=== PATIENT | male | born 1960 | race Caucasian/White ===

== ENCOUNTER 2019-12-27 14:18 | Emergency (ER) | payer MEDICARE ==
[~2019-12-27] VITALS: Ht 182.9 cm; Wt 110.0 kg
[2019-12-27 15:06] LABS: GFR > 60 ML/MIN (>=60 (CALC)); GFR FOR AFR.AMER. > 60 ML/MIN (>=60 (CALC))
[2019-12-27 15:07] LABS: HEMATOCRIT 26.1 % (39.0-50.0); HEMOGLOBIN 8.2 g/dl (14.0-18.0); IMMATURE GRANULOCYTES 0.7 % (0.0-5.0); MEAN CELL VOLUME 98.9 fL CALC (80.0-100.0); MEAN CORPUSCULAR HGB 31.1 pG CALC (26.0-32.0); MEAN CORPUSCULAR HGB CONC 31.4 g/dL CAL (32.0-36.0); NEUT# 6.85 thou/uL (1.82-7.42); RED BLOOD COUNT 2.64 mill/uL (4.70-6.10); RED CELL DISTRI WIDTH 15.1 % (11.5-15.5)
[2019-12-27 15:14] LABS: ALBUMIN 4.2 g/dL (3.2-5.0); ALKALINE PHOSPHATASE 73 u/l (38-126); ANION GAP 16 (6-22 (CALC)); BILIRUBIN, TOTAL 1.5 mg/dL (0.0-1.4); BUN 33 mg/dL (9-20); BUN/CREATININE RATIO 47 (12-20 (CALC)); CARBON DIOXIDE 20 mmol/l (22-30); CHLORIDE 104 mmol/l (95-108); CREATININE 0.7 mg/dL (0.7-1.3); GFR > 60 ML/MIN (>=60 (CALC)); GFR FOR AFR.AMER. > 60 ML/MIN (>=60 (CALC)); POTASSIUM 4.2 mmol/l (3.5-5.1); SGOT/AST 51 u/l (17-59); SODIUM 136 mmol/l (137-146); TOTAL PROTEIN 7.4 g/dL (6.3-8.2)
[2019-12-27 17:20] VITALS: BP 125/84
--- NOTE | 2019-12-29 08:29 | NUR ---
PRELIM BLOOD CX RESULTS SHOW GRAM POSITIVE COCCI IN 1 AEROBIC BOTTLE PER [place] IN LAB. PT WAS XFER TO [facility]. RESULTS CALLED TO NURSE SMITH ON 5EMERE AND FAXED TO [phone]. WILL F/U WITH FINAL RESULTS
--- NOTE | 2019-12-31 14:01 | NUR ---
Final blood culture results of 1/4 bottles growing Staph epi called and faxed to nurse Virginia at [facility] on 12/30/19 @1400.
== END 2019-12-27 17:20 | disposition short-term general hospital (02) ==
LOC: ED 14:18
PROVIDERS: Family Medicine
DX: K92.0 Hematemesis (principal); K92.1 Melena; D64.9 Anemia, unspecified; E86.0 Dehydration; F10.20 Alcohol dependence, uncomplicated; E87.2 Acidosis
CPT/HCPCS: J2354; Q9967; S0164

== ENCOUNTER 2020-12-07 14:17 | Emergency (ER) | payer MEDICARE ==
[~2020-12-07] VITALS: Ht 182.9 cm; Wt 81.0 kg
[2020-12-07 15:02] LABS: HEMATOCRIT 31.2 % (39.0-50.0); HEMOGLOBIN 9.9 g/dl (14.0-18.0); IMMATURE GRANULOCYTES 0.1 % (0.0-5.0); MEAN CORPUSCULAR HGB 33.6 pG CALC (26.0-32.0); MEAN CORPUSCULAR HGB CONC 31.7 g/dL CAL (32.0-36.0); NEUT# 7.08 thou/uL (1.82-7.42); RED BLOOD COUNT 2.95 mill/uL (4.70-6.10)
[2020-12-07 15:03] LABS: MEAN CELL VOLUME 105.8 fL CALC (80.0-100.0)
[2020-12-07 15:25] LABS: INTERNATIONAL NORMALIZED RATIO 1.3 RATIO (0.7-1.3); PROTHROMBIN TIME 13.5 SECONDS (9.0-12.5)
[2020-12-07 16:19] LABS: ALKALINE PHOSPHATASE 157 u/l (38-126); BUN 15 mg/dL (9-20); BUN/CREATININE RATIO 24 (12-20 (CALC)); CHLORIDE 105 mmol/l (95-108); CREATININE 0.6 mg/dL (0.7-1.3); GFR > 60 ML/MIN (>=60 (CALC)); GFR FOR AFR.AMER. > 60 ML/MIN (>=60 (CALC)); MAGNESIUM 1.2 mg/dL (1.6-2.3); SODIUM 138 mmol/l (137-146)
[2020-12-07 16:27] LABS: ANION GAP 17 (6-22 (CALC)); BILIRUBIN, TOTAL 7.3 mg/dL (0.0-1.4); CARBON DIOXIDE 22 mmol/l (22-30); POTASSIUM 5.6 mmol/l (3.5-5.1); SGOT/AST 168 u/l (17-59); TOTAL PROTEIN 6.5 g/dL (6.3-8.2)
[2020-12-07 17:25] VITALS: BP 91/78
[2020-12-07 18:13] VITALS: BP 92/71
[2020-12-07 19:07] VITALS: BP 108/69
== END 2020-12-07 20:00 | disposition short-term general hospital (02) ==
LOC: ED 14:17
PROVIDERS: Physician Assistant Surgical
PROC: 30233N1 Transfusion of Nonautologous Red Blood Cells into Peripheral Vein, Percutaneous Approach (ICD-10-PCS; principal; 2020-12-07)
DX: K92.0 Hematemesis (principal); K92.1 Melena; D64.9 Anemia, unspecified; E83.42 Hypomagnesemia; F10.20 Alcohol dependence, uncomplicated; F17.200 Nicotine dependence, unspecified, uncomplicated; Z20.822 Contact with and (suspected) exposure to COVID-19
CPT/HCPCS: J2354; J3475; P9016; Q9967; S0164

== ENCOUNTER 2021-01-30 16:59 | Inpatient (IN) | payer MEDICARE ==
[~2021-01-30] VITALS: Ht 182.9 cm; Wt 72.0 kg
--- NOTE | 2021-01-30 17:00 | NUR ---
PATIENT TO ROOM 15 VIA EMS
--- NOTE | 2021-01-30 17:59 | NUR ---
Reassessment of patient completed. No distress noted. Extra warm blankets given as per patient request.
[2021-01-30 18:33] LABS: URINE BILIRUBIN - DIPSTICK NEGATIVE (NEGATIVE); URINE BLOOD DIPSTICK NEGATIVE (NEGATIVE); URINE COLOR YELLOW; URINE GLUCOSE - DIPSTICK NEGATIVE (NEGATIVE); URINE KETONE NEGATIVE (NEGATIVE); URINE LEUK ESTERASE NEGATIVE (NEGATIVE); URINE NITRITE - DIPSTICK NEGATIVE (Negative); URINE PH 6.5 (4.5-8.0); URINE PROTEIN - DIPSTICK NEGATIVE (NEG-TRACE); URINE SPECIFIC GRAVITY <=1.005
[2021-01-30 18:33] LABS: HEMATOCRIT 35.1 % (39.0-50.0); HEMOGLOBIN 12.4 g/dl (14.0-18.0); IMMATURE GRANULOCYTES 0.6 % (0.0-5.0); MEAN CELL VOLUME 88.9 fL CALC (80.0-100.0); MEAN CORPUSCULAR HGB 31.4 pG CALC (26.0-32.0); MEAN CORPUSCULAR HGB CONC 35.3 g/dL CAL (32.0-36.0); NEUT# 7.43 thou/uL (1.82-7.42); RED BLOOD COUNT 3.95 mill/uL (4.70-6.10); RED CELL DISTRI WIDTH 15.5 % (11.5-15.5)
[2021-01-30 18:45] LABS: ALBUMIN 3.5 g/dL (3.2-5.0); BILIRUBIN, TOTAL 9.4 mg/dL (0.0-1.4); BUN 10 mg/dL (9-20); BUN/CREATININE RATIO 11 (12-20 (CALC)); GFR > 60 ML/MIN (>=60 (CALC)); GFR FOR AFR.AMER. > 60 ML/MIN (>=60 (CALC)); SGOT/AST 113 u/l (17-59); TOTAL PROTEIN 7.7 g/dL (6.3-8.2)
[2021-01-30 18:49] LABS: ALKALINE PHOSPHATASE 262 u/l (38-126); ANION GAP 14 (6-22 (CALC)); CARBON DIOXIDE 39 mmol/l (22-30); CHLORIDE 68 mmol/l (95-108); SODIUM 118 mmol/l (137-146)
--- NOTE | 2021-01-30 19:00 | NUR ---
transition of care report to favian luther
[2021-01-30 19:31] LABS: INTERNATIONAL NORMALIZED RATIO 1.2 RATIO (0.7-1.3); PROTHROMBIN TIME 12.6 SECONDS (9.0-12.5)
--- NOTE | 2021-01-30 19:45 | NUR ---
PT RESTING WITH EYES CLOSED, CALM AND COOPERATIVE OFFERS NO COMPLAINTS EXCEPT BEING COLD, BLANKET PROVIDED.
--- NOTE | 2021-01-30 20:36 | NUR ---
PT RESTING OFFERS NO NEW COMPLAINTS, SKIN INTACT WITH MUTIPKE OLD BRUISES AND ABRASIONS, CALL SINGH WITHIN REACH, WILL CONTINUE TO MONITOR
--- NOTE | 2021-01-30 21:12 | NUR ---
PT RESTING NO COMPLAINTS VOICED, CALL SINGH WITHIN REACH.
--- NOTE | 2021-01-30 22:00 | NUR ---
PT AWARE OF PLANNED ADMISSION, CALL SINGH WITHIN REACH.
[2021-01-30 22:14] LABS: BUN 10 mg/dL (9-20); BUN/CREATININE RATIO 12 (12-20 (CALC)); CARBON DIOXIDE 35 mmol/l (22-30); CHLORIDE 72 mmol/l (95-108); CREATININE 0.8 mg/dL (0.7-1.3); GFR > 60 ML/MIN (>=60 (CALC)); GFR FOR AFR.AMER. > 60 ML/MIN (>=60 (CALC))
[2021-01-30 22:17] LABS: ANION GAP 12 (6-22 (CALC)); POTASSIUM 2.4 mmol/l (3.5-5.1); SODIUM 117 mmol/l (137-146)
[2021-01-30 22:22] LABS: TSH, 3RD GENERATION 1.09 uIU/mL (0.47 - 4.68)
--- NOTE | 2021-01-30 22:48 | NUR ---
REPORT CALLED TO TREVOR BARTHOLOMEW IN ICU BED 4 ASSIGNED
--- NOTE | 2021-01-30 23:15 | NUR ---
PT TRANSPORTED TO ICU VIA STRETCHER WITH TELE IN PLACE.
--- NOTE | 2021-01-30 23:15 | NUR ---
RECEIVED INTO ICU BED 4 FROM ER VIA STRETCHER. PATIENT ASSISTED INTO BED AND PLACED ON BRASS BOBBIN WINDER SHOWING SR. ON O2 AT 2 L NC. O2 SAT 96% RESP NON-LABORED. LUNGS CLEAR. 3% SODIUM CHLORIDE INFUSING AT 40 ML/HR INTO LAC IV SITE. SALINE LOCK IN PLACE IN LFA, NS STARTED ORDERED AT 100 ML/HR. BOTH IV SITES BENIGN. DISCUSSED PLAN OF CARE. DENIES NEEDS AT THIS TIME. PATIENT BELONGING INVENTORY SHEET COMPLETED. PATIENT HAS A WALLET WITH HIM AND STATES HE HAS "A FEW HUNDRED BUCKS." OFFERED TO HAVE WALLET PLACED IN HOSPITAL SAFE AND PATIENT DECLINED. CALL SINGH IN REACH.
[2021-01-30 23:30] VITALS: BP 83/56
[2021-01-30 23:45] VITALS: BP 76/47
[2021-01-31] VITALS (37 sets, daily range): BP systolic 59–100; BP diastolic 38–70
--- NOTE | 2021-01-31 | NUR ---
PATIENT VOIDED IN URINAL DARK OSVALDO URINE. RESTING WITH EYES CLSOED AT THIS TIME.
--- NOTE | 2021-01-31 00:36 | NUR ---
ANIMAL CHIROPRACTOR HERE TO DRAW BLOOD FOR STAT CH7.
[2021-01-31 00:55] LABS: BUN 10 mg/dL (9-20); BUN/CREATININE RATIO 12 (12-20 (CALC)); CARBON DIOXIDE 35 mmol/l (22-30); CHLORIDE 74 mmol/l (95-108); CREATININE 0.8 mg/dL (0.7-1.3); GFR > 60 ML/MIN (>=60 (CALC)); GFR FOR AFR.AMER. > 60 ML/MIN (>=60 (CALC))
[2021-01-31 00:59] LABS: ANION GAP 9 (6-22 (CALC)); POTASSIUM 2.4 mmol/l (3.5-5.1); SODIUM 116 mmol/l (137-146)
--- NOTE | 2021-01-31 01:00 | NUR ---
NA 116. 3% SODIUM CHLORIDE CONTINUES TO INFUSE AT 40 ML/HR.
[2021-01-31 02:55] LABS: ANION GAP 9 (6-22 (CALC)); BUN 10 mg/dL (9-20); BUN/CREATININE RATIO 13 (12-20 (CALC)); CARBON DIOXIDE 35 mmol/l (22-30); CHLORIDE 79 mmol/l (95-108); CREATININE 0.8 mg/dL (0.7-1.3); GFR > 60 ML/MIN (>=60 (CALC)); GFR FOR AFR.AMER. > 60 ML/MIN (>=60 (CALC)); POTASSIUM 2.8 mmol/l (3.5-5.1); SODIUM 120 mmol/l (137-146)
--- NOTE | 2021-01-31 03:10 | NUR ---
SODIUM LEVEL UP TO 120. 3% SODIUM CHLORIDE ON HOLD. CALL TO DR GARNER AND INFORMED HIM OF SODIUM LEVEL. NEW ORDERS RECEIVED. IV SITES IN LFA AND LAC FLUSHED AND PATENT.
--- NOTE | 2021-01-31 04:00 | NUR ---
RESTING WITH EYES CLOSED. RESP NON-LABORED. SB TO SR ON MONITOR.
[2021-01-31 04:45] LABS: HEMATOCRIT 30.7 % (39.0-50.0); HEMOGLOBIN 10.7 g/dl (14.0-18.0); MEAN CELL VOLUME 88.2 fL CALC (80.0-100.0); MEAN CORPUSCULAR HGB 30.7 pG CALC (26.0-32.0); MEAN CORPUSCULAR HGB CONC 34.9 g/dL CAL (32.0-36.0); RED BLOOD COUNT 3.48 mill/uL (4.70-6.10); RED CELL DISTRI WIDTH 15.8 % (11.5-15.5)
[2021-01-31 05:09] LABS: ANION GAP 9 (6-22 (CALC)); BUN 9 mg/dL (9-20); BUN/CREATININE RATIO 13 (12-20 (CALC)); CARBON DIOXIDE 34 mmol/l (22-30); CHLORIDE 82 mmol/l (95-108); CREATININE 0.7 mg/dL (0.7-1.3); GFR > 60 ML/MIN (>=60 (CALC)); GFR FOR AFR.AMER. > 60 ML/MIN (>=60 (CALC)); POTASSIUM 2.7 mmol/l (3.5-5.1); SODIUM 122 mmol/l (137-146)
[2021-01-31 05:10] LABS: MAGNESIUM 1.6 mg/dL (1.6-2.3)
--- NOTE | 2021-01-31 06:00 | NUR ---
SLEPT ON AND OFF. SALINE LOCK INTACT IN LAC AND LFA. SB-SR ON MONITOR. NO C/O VOICED.
[2021-01-31 07:00] LABS: ANION GAP 9 (6-22 (CALC)); BUN 9 mg/dL (9-20); BUN/CREATININE RATIO 13 (12-20 (CALC)); CARBON DIOXIDE 35 mmol/l (22-30); CHLORIDE 82 mmol/l (95-108); CREATININE 0.7 mg/dL (0.7-1.3); GFR > 60 ML/MIN (>=60 (CALC)); GFR FOR AFR.AMER. > 60 ML/MIN (>=60 (CALC)); POTASSIUM 2.6 mmol/l (3.5-5.1); SODIUM 124 mmol/l (137-146)
--- NOTE | 2021-01-31 07:00 | NUR ---
REPORT RECEIVED FROM PUMA MURRAY. PT AWAKE ALERT AND APPROPRIATE. ASSESSMENT PREFORMED. PT REPORTS NO PAIN, EAGER FOR BREAKFAST. STATES "I THINK THEYRE THINKING ABOUT LETTING ME GO HOME." POC REVIEWED, PT STATES "WELL I GUESS ANOTHER NIGHT OF YOU GUYS TAKING CARE OF ME WILL BE OK." CALL LIGHT WITHIN REACH. INSTRUCTED PT TO CALL FOR ASSISTANCE, VERBALIZES UNDERSTANDING.
--- NOTE | 2021-01-31 07:52 | NUR ---
LAB IN ROOM AT THIS TIME FOR SCHEDULED CHEMISTRY. PT APPEARS TO BE IN NO DISTRESS.
[2021-01-31 08:44] LABS: ANION GAP 8 (6-22 (CALC)); BUN 9 mg/dL (9-20); BUN/CREATININE RATIO 13 (12-20 (CALC)); CARBON DIOXIDE 37 mmol/l (22-30); CHLORIDE 82 mmol/l (95-108); CREATININE 0.7 mg/dL (0.7-1.3); GFR > 60 ML/MIN (>=60 (CALC)); GFR FOR AFR.AMER. > 60 ML/MIN (>=60 (CALC)); SODIUM 124 mmol/l (137-146)
--- NOTE | 2021-01-31 10:00 | NUR ---
NEXT OF KIN ON PHONE, INFORMED OF CT FOR SCHEDULED FOR OUTPATIENT AT [facility] NOTIFIED. STATES WILL ATTEMPT TO ARRANGE PROCEDURE WITH CT DEPARTMENT FOR PATIENT. ALSO, PT STATES HE TAKES REGULAR MEDICATIONS, AND GETS PRESCRIPTIONS FROM AMA. STATES WILL OBTAIN LIST FROM AMA IN AM. PT DENIES PAIN, SOB OR DISCOMFORT CALL LIGHT WITHIN REACH. INSTRUCTED PT TO CALL FOR ASSISTANCE, VERBALIZES UNDERSTANDING.
[2021-01-31 10:22] LABS: ALBUMIN 2.9 g/dL (3.2-5.0); BILIRUBIN, TOTAL 7.9 mg/dL (0.0-1.4); DIRECT BILIRUBIN 2.9 mg/dl (0.0-0.3); TOTAL PROTEIN 6.7 g/dL (6.3-8.2)
--- NOTE | 2021-01-31 12:00 | NUR ---
PT GIVEN BED BATH AT THIS TIME RELATED TO SPILLED URINE ON SHEETS. ADMITS TO NOT BEING ABLE TO BATH SELF FOR SOME DAYS. STATES "ARE THERE PEOPLE WHO CAN COME TO YOUR HOUSE AND HELP YOU WITH THINGS LIKE THIS?" EDUCATED PATIENT ON CASE MANAGEMENT AND THE ORDER FOR PHYSICAL THERAPY IN AM. PT STATES UNDERSTANDING, AND ADMITS TO NEEDING ADDITIONAL ASSISTANCE WITH MEDICATIONS AND ADL'S. CASE MANAGEMENT AND PT REFERRAL ORDERED PREVIOUSLY.
--- NOTE | 2021-01-31 14:16 | NUR ---
NOTIFIED OF PT'S PERSISTANT HYPOTENSION. GIVEN ORDER FOR 1L OF LR. WILL MONITOR Q15 MINUTE BP. WILL NOTIFY IF BP WORSENS.
--- NOTE | 2021-01-31 15:15 | NUR ---
PT GIVEN CHLORASEPTIC THROAT SPRAY FOR DISCOMFORT IN MOUTH AND ON TONGUE. ALSO GIVEN TYLENOL FOR GENERALIZED ACHE IN BODY.
--- NOTE | 2021-01-31 15:23 | NUR ---
LR FLUID BOLUS FINISHED AT THIS TIME BP IS 77/56. PT PLACED BACK ON O2 SPO2 REMAINS IN THE HIGH 80'S FOR O2 SATURATION. WILL REPEAT BP IN 15 MINUTES AND NOTIFY MD IF NO CHANGE IN HYPOTENSION.
--- NOTE | 2021-01-31 17:00 | NUR ---
MOTHER ON PHONE AT THIS TIME. GIVEN UPDATE, PT REFUSING TO TALK TO MOTHER AT THIS TIME. VS SHOW SMALL IMPROVEMENT. PT DENIES S/S OF HYPOTENSION. STATES UNDERSTANDING OF CALL LIGHT, AND NOT GETTING OOB WITHOUT ASSISTANCE. WILL CONTINUE TO MONITOR.
--- NOTE | 2021-01-31 19:56 | NUR ---
patient is alert and oriented x4. o2 sats 92% and greater on ra, patient had nasal cannula off of nose. patient does cooperate but does not want to be bothered with, states, "your just gonna take my do what you have to do and your done with me for tonight," after I discussed poc, such as, my nurse assessment. nurse assessment performed. has 2 iv sites, intact, functioining properly, multivitamin bag infusing properly. has a lesion on his frontal head, is cdi/scabbed. has scattered bruising on ue and scabs. reports its from when his dog "pushes" him. wears his glasses and his hat. no edema noted. requests apple juice and iced water, provided. warm blanket provided. when uss urinal he places his feet out of the bed and lays back. room in front of nurse's station and can observe him. denies pain. call light within reach.
--- NOTE | 2021-01-31 20:30 | NUR ---
LOVENOX INJECTION PROVIDED, PT TOLERATED WELL. NO ACUTE DISTRESS SHOWN. CALL LIGHT WITHIN REACH. BP CONTINUES TO BE LOW 81/56 MMHG, WILL CONTINUE TO MONITOR.
--- NOTE | 2021-01-31 22:47 | NUR ---
JARRED AND SPOKE TO DR GARNER REGARDING PATIENT BP AND MAP. PT IS ASYMPTOMATIC, BANANA BAG HAS FINISHED INFUSING. NEW ORDER RECEIVED AND FAXED TO [facility].
--- NOTE | 2021-01-31 23:21 | NUR ---
TYLENOL PROVIDED PER PT REQUEST. IV FLUID BOLUS INFUSING NOW. PATIENT IN NO ACUTE DISTRESS. IS THIRSTY AND DRINKING APPLE JUICE AND WATER THROUGH THE NIGHT. CALL ELIZABETH ACEVEDO.
[2021-02-01] VITALS (23 sets, daily range): BP systolic 73–111; BP diastolic 48–79
--- NOTE | 2021-02-01 00:23 | NUR ---
IV FLUID BOLUS HAS FINSIHED INFUSING, LAC IV IS PATENT. PATIENT IS AWAKE, NO COMPLAINTS OR NEEDS AT THISTIME. CALL LIGHT WITHIN REACH.
--- NOTE | 2021-02-01 03:40 | NUR ---
patient's bp reads low, patient was laying on his r-side, was intstructed to lay on his back to be able to take bp again for a better reading, bed was also placed in trendelenburg position. bp now 83/61 mmhg.
[2021-02-01 05:07] LABS: HEMOGLOBIN 10.7 g/dl (14.0-18.0); IMMATURE GRANULOCYTES 1.1 % (0.0-5.0); MEAN CELL VOLUME 92.8 fL CALC (80.0-100.0); MEAN CORPUSCULAR HGB CONC 33.4 g/dL CAL (32.0-36.0); NEUT# 3.09 thou/uL (1.82-7.42); RED BLOOD COUNT 3.45 mill/uL (4.70-6.10); RED CELL DISTRI WIDTH 16.5 % (11.5-15.5)
--- NOTE | 2021-02-01 05:20 | NUR ---
PATIENT IS AWAKE, SITS IN SEMI BENNETT'S POSITION. REQUESTS ORANGE JUICE AND A SNACK BAR. NO ACUTE DISTRESS SHOWN, NO COMPLAINTS. CALL LIGHT WITHIN EACH.
[2021-02-01 05:59] LABS: ALBUMIN 2.6 g/dL (3.2-5.0); ALKALINE PHOSPHATASE 208 u/l (38-126); ANION GAP 7 (6-22 (CALC)); BUN 5 mg/dL (9-20); BUN/CREATININE RATIO 9 (12-20 (CALC)); CARBON DIOXIDE 32 mmol/l (22-30); CREATININE 0.6 mg/dL (0.7-1.3); GFR > 60 ML/MIN (>=60 (CALC)); GFR FOR AFR.AMER. > 60 ML/MIN (>=60 (CALC)); POTASSIUM 2.9 mmol/l (3.5-5.1); SGOT/AST 108 u/l (17-59); SODIUM 129 mmol/l (137-146); TOTAL PROTEIN 5.9 g/dL (6.3-8.2)
[2021-02-01 06:08] LABS: CHLORIDE 93 mmol/l (95-108)
--- NOTE | 2021-02-01 07:09 | NUR ---
ASSUMED CARE OF PT, UPON ENTERING ROOM TO VERIFY BP OF 61/37, PT STATES HE DOES NOT WANT TO BE BOTHERED AND " I WANT ALL THIS CRAP OFF OF ME TODAY" RECHECK OF BP WAS 80/49, WHICH APPEARS TO BE PT BASELINE. ASSURED PT WE WILL DISCUSS HIS CARE WITH MD DURING ROUNDS.
--- NOTE | 2021-02-01 08:18 | NUR ---
PT SITTING UP EATING BREAKFAST, STATED AGAIN HOW HE WANTS TO GO HOME, EXPLAINED HIS LAB RESULTS AND ELECTOLYTE IMBALANCE. PT STATES "JUST GIVE ME SOME VITAMINS" TOLD HIM WE WOULD DISCUSS HIS CARE GOAL WITH MD DURING ROUNDS
--- NOTE | 2021-02-01 09:37 | NUR ---
pt states he doesnt get out of bed, can only sit on the side in emergencies. asked how he takes care of his dog at home, he states he gave him away. asked how he goes to bathroom, pt states "i use a pool cue to get around" he then stated to tell pt they are wasting their time. told him he would be unable to go home unless we know he can take care of himself.
--- NOTE | 2021-02-01 11:08 | NUR ---
UPDATED PT MOM VIA PHONE
[2021-02-01] MEDS ORDERED: B-12500 MC1 PO (11:59)
[2021-02-01] MEDS ORDERED: FLEXERIL5 M1 PO (12:02)
[2021-02-01] MEDS ORDERED: PROTONIX40 M2 PO (12:02)
[2021-02-01] MEDS ORDERED: GABAPENTIN300 M2 PO (12:04)
[2021-02-01] MEDS ORDERED: PROPRANOLOL HCL20 MG PO (12:05)
[2021-02-01] MEDS ORDERED: ONDANSETRON4 MG PO (12:06)
[2021-02-01] MEDS ORDERED: Levaquin PO (12:08)
[2021-02-01] MEDS ORDERED: VALIUM2 MG PO (12:09)
--- NOTE | 2021-02-01 14:20 | NUR ---
CHANGED PT LINEN, PT REFUSED BATH
--- NOTE | 2021-02-01 16:46 | NUR ---
UPDATED PT SISTER VIA PHONE
--- NOTE | 2021-02-01 18:00 | NUR ---
PT SEEMS RESTLESS, RE ENFORCED HE NEEDED TO KEEP MONTIOR ON IN ICU, REORIENTED ON HOW TO USE CALL LIGHT AND WHERE URINAL WAS
--- NOTE | 2021-02-01 19:50 | NUR ---
awakens easily. no acute distress. hall monitor shows sinus rhythm hr 80. #20 lac ns infusing @ 80cchr. po fluids taken poor. voids per urinal. urine dark bradly. no dt's. fall precautions cont.
--- NOTE | 2021-02-01 20:20 | NUR ---
amb to br per request for bm then back to bed. alma well.
--- NOTE | 2021-02-01 21:30 | NUR ---
pt requested bp cuff & site monitor off. request denied.
--- NOTE | 2021-02-01 21:39 | NUR ---
lab here. blood drawn.
[2021-02-01 22:03] LABS: ANION GAP 7 (6-22 (CALC)); BUN 3 mg/dL (9-20); BUN/CREATININE RATIO 5 (12-20 (CALC)); CARBON DIOXIDE 30 mmol/l (22-30); CHLORIDE 97 mmol/l (95-108); CREATININE 0.6 mg/dL (0.7-1.3); GFR > 60 ML/MIN (>=60 (CALC)); GFR FOR AFR.AMER. > 60 ML/MIN (>=60 (CALC)); SODIUM 130 mmol/l (137-146)
[2021-02-01 22:05] LABS: POTASSIUM 3.9 mmol/l (3.5-5.1)
--- NOTE | 2021-02-01 23:55 | NUR ---
pt removed bp cuff & cardiac cath technician.
[2021-02-02] VITALS (7 sets, daily range): BP systolic 98–113; BP diastolic 59–71
--- NOTE | 2021-02-02 02:00 | NUR ---
eyes closed. no distress. ivf infusing well.
--- NOTE | 2021-02-02 05:00 | NUR ---
lab here. blood drawn. rn cvicu & bp cuff replaced.
--- NOTE | 2021-02-02 07:09 | NUR ---
ASSUMED CARE OF PT FROM ELI GARCIA. PT HAS NO S/S OF DISTRESS. DISCUSSED PT PLAN OF CARE AND GOALS FOR TODAY. EXPLAINED TO PT IMPORTANCE OF WORKING WITH PHYSICAL THREAPY AND GETTING OUT OF BED. PT STATED HE CANT. EXPLAINED THAT HE GOT UP AND AMBULATED TO BATHROOM TWICE LAST NIGHT SO HE IS ABLE TO GET OUT OF BED AND WOTK WITH THREAPY TODAY. DISCUSSED CARE GOALS WITH HIM AND EXPLAINED IF HE IS UNABLE TO GET OOB TO CARE FOR HIMSELF WE WOULD BE UNABLE TO SEND HIM HOME AND IF INDICATED WOULD HE BE WILLING TO GO TO REHAB FOR P.T. AND HE STATED THAT HE WOULD BE INTERESTED IN DOING THAT IF PRESCRIBED.
--- NOTE | 2021-02-02 07:57 | NUR ---
PT SITING UP IN BED EATING BREAKFAST. PT REFUSED TO GET OOB TO CHAIR TO EAT.
--- NOTE | 2021-02-02 08:25 | NUR ---
ROUNDING AT BEDSIDE
--- NOTE | 2021-02-02 09:14 | NUR ---
OBSERVED PT TELE MONITOR WAS DISCONNECTED. WENT INTO ROOM TO RECONNECT AND EDUCATE PT ON IMPORTANCE OF LEAVING MONITOR ON, FOUND PT HAD WALKED HIMSELF TO THE BATHROOM. RE ENFORCED USE OF CALL LIGHT AND CALLING FOR ASSISTANCE WHEN GETTING OUT OF BED. PT ABLE TO WALK BACK TO BED WITH STAND BY ASSISTANCE. REPLACED MONITOR AND TURNED ON BED ALARM.
--- NOTE | 2021-02-02 11:01 | NUR ---
ASSISTED PT TO BATHROOM WITH STAND BY ASSISTANCE
[2021-02-02 11:41] LABS: ANION GAP 8 (6-22 (CALC)); BUN 4 mg/dL (9-20); BUN/CREATININE RATIO 6 (12-20 (CALC)); CARBON DIOXIDE 29 mmol/l (22-30); CHLORIDE 98 mmol/l (95-108); CREATININE 0.6 mg/dL (0.7-1.3); GFR > 60 ML/MIN (>=60 (CALC)); GFR FOR AFR.AMER. > 60 ML/MIN (>=60 (CALC)); SODIUM 131 mmol/l (137-146)
--- NOTE | 2021-02-02 13:04 | NUR ---
UPDATED PT MOTHER VIA TELEPHONE
--- NOTE | 2021-02-02 13:20 | NUR ---
UPDATED PT SISTER VIA TELEPHONE
--- NOTE | 2021-02-02 14:15 | NUR ---
ASSISTED PT TO BATHROOM WITH STANDBY ASSISTANCE
--- NOTE | 2021-02-02 15:59 | NUR ---
ASSISTED PT TO BATHROOM VIA STANDBY ASSISTANCE
--- NOTE | 2021-02-02 16:06 | NUR ---
PHYSICAL THERAPY AT BEDSIDE EVALUATING PT
--- NOTE | 2021-02-02 16:42 | NUR ---
S: Patient states that he is feeling a little better with improved dynamic balance and walking 5 to 8 steps to and from the bed to the bathroom. O: Patient did the following: Seated knee extension for 10 reps x 2 sets. Seated hip flexion for 10 reps x 2 sets. Seated hip abduction for 10 reps x 2 sets. Sit to stand activity for 10 reps. Dynamic standing balance, weight shifting for 10 reps, side to side with min A x 1. A: Patient exhibiting improving dynamic balance capability, tolerated 10-15 seconds of dynamic balance with weight shifting activity, but fatigued immediately and requested to sit down. Patient was reminded about proper body mechanics to help decrease trick movements and fall risks, especiallt sit to stand transfers. P: Patient was reminded to continue with strengthening exercises, dynamic balance activity, and practice of proper body mechanics to help decrease trick movements, improve functional weight bearing capability and tolerance, while decreasing fall risks. Am Pac score today was 10 points, discharge recommendation would be extended care facility and I agree with this recommendation to help patient prepare for discharge and to return back home.
--- NOTE | 2021-02-02 17:02 | NUR ---
REPORT RECIEVED FROM MAYNOR BARTHOLOMEW. PT CAME VIA WC FROM ICU BY MAYNOR BARTHOLOMEW. TIME CLERK OBTAINING VITALS, ORIENTATED TO ROOM. IV PATENT, FLUSHED WITH NO RESISTANCE. WARM BLANKET PROVIDED DUE TO BEING COLD. SAFTEY PRECAUTION REINFORCED. BED ALARM ACTIVATED. CALL LIGHT WITHIN REACH.
--- NOTE | 2021-02-02 20:00 | NUR ---
PATIENT RESTING SUPINE. A/OX3. ABLE TO MAKE NEEDS KNOWN. DENIES PAIN. C/O BEING COLD. BLANKET GIVEN FOR COMFORT. ASSESSMENT COMPLETED AND CHARTED. BED IN LOW POSITION. CALL LIGHT WITHIN REACH.
[2021-02-02 21:16] LABS: ANION GAP 7 (6-22 (CALC)); BUN 4 mg/dL (9-20); BUN/CREATININE RATIO 7 (12-20 (CALC)); CARBON DIOXIDE 27 mmol/l (22-30); CHLORIDE 101 mmol/l (95-108); CREATININE 0.6 mg/dL (0.7-1.3); GFR > 60 ML/MIN (>=60 (CALC)); GFR FOR AFR.AMER. > 60 ML/MIN (>=60 (CALC)); POTASSIUM 4.3 mmol/l (3.5-5.1); SODIUM 131 mmol/l (137-146)
[2021-02-03] VITALS: BP 98/75
--- NOTE | 2021-02-03 | NUR ---
PATIENT RESTING QUIETLY. WARM BLANKET GIVEN FOR COMFORT.
[2021-02-03 04:00] VITALS: BP 90/66
--- NOTE | 2021-02-03 04:49 | NUR ---
RESTING QUIETLY. NO ACUTE DISTRESS OBSERVED.
[2021-02-03 07:41] VITALS: BP 105/77
--- NOTE | 2021-02-03 07:45 | NUR ---
REPORT RECEIVED FROM PUMA SILVA. PT SITTING UP IN BED EATING BREAKFAST ALERT AND ORIENTED X 3. DENIES PAIN. RESPIRATIONS EVEN AND UNLABORED ON ROOM AIR. PT IS IRRITABLE AND AGITATED; VERBALIZES HIS DESIRE TO BE DISCHARGED. IV SITE APPEARS HEATLHY AND FLUSHES; VSS. POC REVIEWED; PT ENCOURAGED TO VERALIZE ANY FURTHER CONCERNS; WARM BLANKET PROVIDED. SAFETY MEASURES IN PLACE. CALL LIGHT WITHIN REACH.
--- NOTE | 2021-02-03 08:53 | NUR ---
DR. GOODMAN AND CHRISSY MYLES AT BEDSIDE.
[2021-02-03 09:07] LABS: ANION GAP 8 (6-22 (CALC)); BUN 4 mg/dL (9-20); BUN/CREATININE RATIO 8 (12-20 (CALC)); CARBON DIOXIDE 27 mmol/l (22-30); CHLORIDE 102 mmol/l (95-108); CREATININE 0.6 mg/dL (0.7-1.3); GFR > 60 ML/MIN (>=60 (CALC)); GFR FOR AFR.AMER. > 60 ML/MIN (>=60 (CALC)); POTASSIUM 4.4 mmol/l (3.5-5.1); SODIUM 132 mmol/l (137-146)
--- NOTE | 2021-02-03 10:32 | NUR ---
IV site discontinued, cath intact. No edema , no redness, voices no discomfort.
--- NOTE | 2021-02-03 10:38 | NUR ---
Discharge instructions given. Patient verbalizes understanding of same. Discharged in stable condition via Wheelchair to Home with [facility] home health. All belongings sent with pt.
== END 2021-02-03 10:38 | DRG 641 ==
LOC: ED 16:59 → ICU 19:44 → MS2 02-02 17:03
PROVIDERS: Emergency Medicine; Internal Medicine; ADMIT Hospitalist; ATTEND Hospitalist
DX: E87.1 Hypo-osmolality and hyponatremia (principal); E87.6 Hypokalemia; E87.8 Other disorders of electrolyte and fluid balance, not elsewhere classified; I95.9 Hypotension, unspecified; E83.42 Hypomagnesemia; F10.20 Alcohol dependence, uncomplicated; S00.83XA Contusion of other part of head, initial encounter; W19.XXXA Unspecified fall, initial encounter; K70.30 Alcoholic cirrhosis of liver without ascites; K72.10 Chronic hepatic failure without coma; F17.210 Nicotine dependence, cigarettes, uncomplicated; Z20.822 Contact with and (suspected) exposure to COVID-19
CPT/HCPCS: G0378; J1650

== ENCOUNTER 2022-02-17 12:49 | Emergency (ER) | payer MEDICARE ==
[2022-02-17] VITALS (13 sets, daily range): BP systolic 107–140; BP diastolic 64–85
[~2022-02-17] VITALS: Ht 182.9 cm; Wt 86.4 kg
[~2022-02-17 12:49] MED LIST: B-12500 MC1 PO; FLEXERIL5 M1 PO; GABAPENTIN300 M2 PO; Levaquin PO; ONDANSETRON4 MG PO; PROPRANOLOL HCL20 MG PO; PROTONIX40 M2 PO; VALIUM2 MG PO
[2022-02-17 13:27] LABS: HEMATOCRIT 22.9 % (39.0-50.0); HEMOGLOBIN 7.1 g/dl (14.0-18.0); IMMATURE GRANULOCYTES 0.3 % (0.0-5.0); MEAN CORPUSCULAR HGB 25.6 pG CALC (26.0-32.0); NEUT# 2.95 thou/uL (1.82-7.42); RED BLOOD COUNT 2.77 mill/uL (4.70-6.10); RED CELL DISTRI WIDTH 21.9 % (11.5-15.5)
[2022-02-17 13:32] LABS: MEAN CELL VOLUME 82.7 fL CALC (80.0-100.0)
[2022-02-17 13:45] LABS: INTERNATIONAL NORMALIZED RATIO 1.2 RATIO (0.7-1.3)
[2022-02-17 13:47] LABS: ALKALINE PHOSPHATASE 102 u/l (38-126); ANION GAP 18 (6-22 (CALC)); BUN 17 mg/dL (8-23); BUN/CREATININE RATIO 37 (12-20 (CALC)); CARBON DIOXIDE 21 mmol/l (22-30); CHLORIDE 104 mmol/l (95-108); CREATININE 0.5 mg/dL (0.7-1.3); GFR FOR AFR.AMER. > 60 ML/MIN (>=60 (CALC)); GFR OTHER RACES > 60 ML/MIN (>=60 (CALC)); LIPASE 21 u/l (23-300); POTASSIUM 3.7 mmol/l (3.5-5.1); SGOT/AST 42 u/l (19-48); SODIUM 140 mmol/l (137-146); TOTAL PROTEIN 7.4 g/dL (6.3-8.2)
[2022-02-17 13:48] LABS: ETHYL ALCOHOL 0 mg/dl (0-30)
[2022-02-17 13:56] LABS: ALBUMIN 4.1 g/dL (3.2-5.0)
== END 2022-02-17 16:27 | disposition short-term general hospital (02) ==
LOC: ED 12:49
PROVIDERS: Nurse Practitioner
PROC: 30233N1 Transfusion of Nonautologous Red Blood Cells into Peripheral Vein, Percutaneous Approach (ICD-10-PCS; principal; 2022-02-17)
DX: K92.0 Hematemesis (principal); K92.1 Melena; D64.9 Anemia, unspecified; F10.20 Alcohol dependence, uncomplicated; F17.200 Nicotine dependence, unspecified, uncomplicated; Z85.810 Personal history of malignant neoplasm of tongue
CPT/HCPCS: P9016; Q9967; S0164